=== PATIENT | female | born 2005 | race Caucasian/White ===

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

== ENCOUNTER 2024-06-09 11:10 | Emergency (ER) | payer BC, SELFPAY ==
--- NOTE | 2024-06-09 11:15 | ED.FEMALEGU ---
HPI - Female Genitourinary General Chief complaint: Urogenital-Female Stated complaint: Bladder pain Time Seen by Provider: 06/09/24 11:15 Source: patient Mode of arrival: ambulatory Limitations: no limitations History of Present Illness HPI Narrative: Gabrielle is a 18-year-old female patient presenting to the clinic today with complaints of possible UTI. She reports she has had burning, frequency, and urgency with urination for the past 5 days. Last menstrual period was last week. Last bowel movement was 2-3 days ago. Denies any fever or chills but does have some slight right-sided lower back pain as well as had 1 episode of nausea/vomiting. Does report some bladder discomfort. Denies any concern for or STIs. Related Data Home Medications Medication Instructions Recorded Confirmed atomoxetine 25 mg capsule 25 mg PO DIRECTED 06/09/24 06/09/24 fluoxetine 10 mg capsule 10 mg DIRECTED 06/09/24 06/09/24 Allergies Allergy/AdvReac Type Severity Reaction Status Date / Time No Known Allergies Verified 09/10/10 09:34 Review of Systems Review of Systems: Pertinent positives per HPI. Patient denies any fever, chills, rash, headache, visual changes, dizziness, cough, runny nose, sore throat, shortness of breath, chest pain, palpitations, nausea, vomiting, diarrhea, constipation, abdominal pain PMFSH Comments At the time of my signature, I reviewed and agree with the nursing past medical, surgical, social, and family history. There is no relevant family history pertinent to the patient complaint. Exam Narrative: General: Well-developed, well nourished, in no apparent distress. Head: Normocephalic, atraumatic. Cardio: Regular rate and rhythm, s1 and s2 normal, no murmur appreciated. Resp: Clear to auscultation bilaterally, no rhonchi, rales, wheezing or rubs. Abdomen: Soft, pliable, bowel sounds present in all quadrants, tender to palpation over the suprapubic bladder, no organomegly mild right CVAT tenderness. Course Course Emergency Course: Portions of this record may have been created with voice recognition software. Level of Care: Express Care Visit Vital Signs Vital signs: Vital Signs Temperature 36.7 C 06/09/24 11:26 Pulse Rate 68 06/09/24 11:26 Respiratory Rate 18 06/09/24 11:26 Blood Pressure 122/83 06/09/24 11:26 Pulse Oximetry 100 06/09/24 11:26 Oxygen Delivery Room Air 06/09/24 11:26 Temperature 36.7 C 06/09/24 11:26 Pulse Rate 68 06/09/24 11:26 Respiratory Rate 18 06/09/24 11:26 Blood Pressure 122/83 06/09/24 11:26 Pulse Oximetry 100 06/09/24 11:26 Oxygen Delivery Room Air 06/09/24 11:26 Vital signs reviewed MDM - Female Genitourinary MDM Narrative Medical decision making narrative: At the time of visit patient is resting comfortably on the exam table. Patient appears to be nontoxic. Labs: Urinalysis positive for leukocytes, blood, protein, and nitrates. Plan: I suspect patient has acute urinary tract infection. Prescription for Bactrim and Pyridium was sent to the pharmacy. Supportive measures were discussed with the patient and they voiced understanding discharge instructions and agrees to treatment plan. Return precautions reviewed Differential Diagnosis Differential diagnosis: Likely urinary tract infection, bacterial vaginosis, trichomoniasis, cervicitis, vaginitis, cystitis and other (STI) Lab Data Labs: Lab Results 06/09/24 Range/Units 11:34 POC Urine Color Yellow POC Urine Clarity Cloudy POC Urine pH 7.0 POC Ur Specif Gage 1.025 POC Urine Protein 2+ POC Ur Glucose (UA) Negative POC Urine Ketones Negative POC Urine Blood 1+ POC Urine Nitrite Positive POC Urine Bilirubin Negative POC Urine Urobilinogen 1.0 POC U Leukocyte Esteras 3+ Discharge Plan Discharge Clinical Impression: Urinary tract infection Qualifiers: Urinary tract infection type: acut
[2024-06-09 11:26] VITALS: BP 122/83; PULSE 68; RESP 18; TEMP 36.7; O2SAT 100
[2024-06-09 11:36] LABS: EDUAAPPEAR Cloudy; EDUABILI Negative; EDUABLOOD 1+; EDUACOLOR1 Yellow; EDUAGLUCOSE Negative; EDUAKETONE Negative; EDUALEUKO 3+; EDUANITRATE Positive; EDUAPROTEIN 2+; EDUASPGRAVITY 1.025
== END 2024-06-09 11:44 | disposition home or self-care (01) ==
PROVIDERS: Emergency Provider Nurse Practitioner Family; PCP Internal Medicine
DX: N30.01 Acute cystitis with hematuria (principal); B96.20 Unspecified Escherichia coli [E. coli] as the cause of diseases classified elsewhere; F41.9 Anxiety disorder, unspecified; F32.A Depression, unspecified
CPT/HCPCS: 81003; 87077; 87086; 87088; 87186; 99213; G0463

== ENCOUNTER 2025-05-11 17:18 | Emergency (ER) | payer BC, SELFPAY ==
--- OUTSIDE RECORDS SUMMARY | 2025-05-11 17:19 | XMS_ITS | Encounter Summary ---
Author Organization [facility] Address [address] [place] [address] Care Team Providers Care Booking Agent Name Role Phone Sergey Nathan MD Primary Care Provider [phone] Encounter Details Date Type Department Care Team (Latest Contact Info) Description 07/01/2024 Bloson Message Enc [facility] Medical Group Multispecialty Care - [place] [address] [address] [address] [place] [address] Sergey Nathan MD [address] [place] [address] [address] [place] [address] Follow-up appointment Social History Tobacco Use Types Packs/Day Years Used Date Smoking Tobacco: Some Days Cigarettes Smokeless Tobacco: Never Comments:Counseled by Dr. Clemencia jacome. Alcohol Use Standard Drinks/Week Comments Not Currently 0 (1 standard drink = 0.6 oz pure alcohol) approx once monthly drinks milton PHQ-2 Answer Date Recorded Patient Health Questionnaire-2 Score 4 04/22/2024 Comments No Sex and Gender Information Value Date Recorded Sex Assigned at Female 01/04/2025 4:05 PM CDT Legal Sex Female 6:55 PM CDT Gender Identity Female 01/04/2025 4:05 PM CDT Sexual Orientation Straight 01/04/2025 4: 05 PM CDT documented as of this encounter Plan of Treatment Not on file documented as of this encounter Visit Diagnoses Not on filedocumented in this encounter Additional Health Concerns Assessment Noted Time PHQ-9 Depression Total Score: 20 024 2:10 PM CDT documented as of this encounter Care Teams Booking Agent Relationship Specialty Start Date End Date Sergey Nathan MD [address] [address] PCP - General INTERNAL MEDICINE 09/23/23 documented as of this encounter
--- OUTSIDE RECORDS SUMMARY | 2025-05-11 17:19 | XMS_ITS | Encounter Summary ---
Author Organization [facility] Address [address] [place] [address] Care Team Providers Care Lcac Operator Name Role Phone Sergey Nathan MD Primary Care Provider [phone] Encounter Details Date Type Department Care Team (Late st Contact Info) Description 04/12/2024 PhotoTLCt Message Enc [facility] Medical Group Multispecialty Care - [address] [address] [address] [place] [address] Sergey Nathan MD [address] [place] [address] [address] [place], [place] [id number] rash Social History Tobacco Use Types Packs/Day Years Used Date Smoking Tobacco: Some Days Cigarettes Smokeless Tobacco: Never Comments:Counseled by Dr. Clemencia jacome. Alcohol Use Standard Drinks/Week Comments Not Currently 0 (1 standard drink = 0.6 oz pure alcohol) approx once monthly drinks milton PHQ-2 Answer Date Recorded Patient Health Questionnaire-2 Score 3 03/26/2024 Comments No Sex and Gender Information Value [...] Assessment Noted Time PHQ-9 Depression Total Score: 11 024 10:02 AM CDT documented as of this encounter Care Teams Lcac Operator Relationship Specialty Start Date End Date Sergey Nathan MD [address] [address] PCP - General INTERNAL MEDICINE 09/23/23 documented as of this encounter
--- OUTSIDE RECORDS SUMMARY | 2025-05-11 17:19 | XMS_ITS | Encounter Summary ---
Author Organization [facility] Address [address] [place] [address] Care Team Providers Care Rn Hemodialysis Name Role Phone Sergey Nathan MD Primary Care Provider [phone] Encounter Details Date Type Department Care Team (Latest Contact Info) Description 06/24/2024 Poq Studio Message Enc [facility] Medical Group Multispecialty Care - [place] [address] [address] [address] [place] [address] Sergey Nathan MD [address] [place] [address] [address] [place], [place] [id number] reschedule appointment 06/24/2024 Social History Tobacco Use Types Packs/Day Years [...] documented as of this encounter Care Teams Rn Hemodialysis Relationship Specialty Start Date End Date Sergye Nathan MD [address] [address] PCP - General INTERNAL MEDICINE 09/23/23 documented as of this encounter
--- OUTSIDE RECORDS SUMMARY | 2025-05-11 17:19 | XMS_ITS | Encounter Summary ---
Author Organization [facility] Address [address] [place] [address] Care Team Providers Care Instructional Design Consultant Name Role Phone Sergey Nathan MD Primary Care Provider [phone] Encounter Details Date Type Department Care Team (Late st Contact Info) Description 10/08/2023 Combatant Gentlemen Message [facility] Medical [facility] Family Medicine [facility] [address] [place] [id number] [employer], [facility] Provider test result Social History Tobacco Use Types Packs/Day Years Used Date Smoking Tobacco: Some Days Cigarettes Smokeless Tobacco: Never Alcohol Use Standard Drinks/Week Comments Not Currently 0 (1 standard drink = 0.6 oz pure alcohol) approx once monthly drinks milton PHQ-2 Answer Date Recorded Patient Health Questionnaire-2 Score 4 09/23/2023 Comments No Sex and Gender Information Value Date Recorded Sex Assigned at Female 01/04/2025 4:05 PM CDT Legal Sex Female 6:55 PM CDT Gender Identity Female 01/04/2025 4:05 PM CDT Sexual Orientation Straight 01/04/2025 4: 05 PM CDT documented as of this encounter Progress Notes * Angelica Whitt MA - 10/19/2023 4:38 PM CST Pt requesting rx on Loestrin TH CENTER ASSISTANT documented in this encounter Plan of Treatment Not on file documented as of this encounter Visit Diagnoses Diagnosis control counseling General counseling for initiation of other contraceptive measures documented in this encounter Additional Health Concerns Assessment Noted Time PHQ-9 Depression Total Score: 16 023 3:29 PM HEALTH CENTER ASSISTANT documented as of this encounter Care Teams Instructional Design Consultant Relationship Specialty Start Date End Date Sergey Nathan MD [address] [address] PCP - General INTERNAL MEDICINE 09/23/23 documented as of this encounter
--- OUTSIDE RECORDS SUMMARY | 2025-05-11 17:19 | XMS_ITS | Encounter Summary ---
Author Organization [facility] Address [address] [place] [address] Care Team Providers Care Admissions Officer Name Role Phone Sergey Nathan MD Primary Care Provider [phone] Encounter Details Date Type Department Care Team (Late st Contact Info) Description 01/06/2025 Appointuit Message [employer] [facility] Medical Group Multispecialty Care - [address] [place] [address] [employer], [facility] Provider records Social History Tobacco Use Types Packs/Day Years Used Date Smoking Tobacco: Some Days Cigarettes Smokeless Tobacco: Never Comments:Counseled by Dr. Clemencia jacome. Alcohol Use Standard Drinks/Week Comments Not Currently 0 (1 standard drink = 0.6 oz pure alcohol) approx once monthly drinks milton PHQ-2 Answer Date Recorded Patient Health Questionnaire-2 Score 3 01/04/2025 Comments No Sex and Gender Information Value [...] Assessment Noted Time PHQ-9 Depression Total Score: 13 025 5:11 PM CDT documented as of this encounter Care Teams Admissions Officer Relationship Specialty Start Date End Date Sergey Nathan MD [address] [facility] [address] [place] [address] PCP - General INTERNAL MEDICINE 09/23/23 documented as of this encounter
--- OUTSIDE RECORDS SUMMARY | 2025-05-11 17:19 | XMS_ITS | Clinical Summary ---
Author Organization [facility] Address [address] [place] [address] Care Team Providers Care Rough And Truing Machine Operator Name Role Phone Malachi Juarez MD Primary Care Provider [phone] Source Comments [facility],non-owned Affiliates and Associated Physician Practices is amultiple site organization consisting of ambulatory clinics and hospital sitesin [place], [place], [place] and [place]. This disclosure is being madepursuant to the Care Everywhere program and may not contain all information available regarding this patient. Last updated 18.[facility]a Allergies No known active allergies Medications * Be aware that medications may not be up to date on this document. Alwaysverify current medications with the patient. No known medications Social History Tobacco Use Types Packs/Day Years Used Date Smoking Tobacco: Never Assessed Comments Unknown Sex and Gender Information Value Date Recorded Sex Assigned at Not on file Legal Sex Female 5:42 AM INDUSTRIAL ECOLOGIST Gender Identity Not on file Sexual Orientation Not on file Last Filed Vital Signs Vital Sign Reading Time Taken Comments Blood Pressure 112/68 03/25/2018 8:15 AM CDT Pulse 80 03/25/2018 8:15 AM CDT Temperature - - Respiratory Rate 12 03/25/2018 8:15 AM CDT Oxygen Saturation - - Inhaled Oxygen Concentration - - Weight 50.3 kg (110 lb 14.3 oz) 03/25/2018 8:15 AM CDT Height 157.8 cm (5' 2.13) 03/25/2018 8:15 AM CD T Body Mass Index 20.2 03/25/2018 8:15 AM CDT Plan of Treatment Health Maintenance Due Date Last Done Comments HIV SCREENING 2018 HPV VACCINE (1 - 3-dose series) 2018 CHLAMYDIA/GONORRHEA SCREENING 2019 MENINGOCOCCAL (Group B) VACC INE SHARED DECISION-MAKING (1 of 2 - Standard) 2019 HEPATITIS C SCREENING 07/27/2021 DTAP/TDAP/TD VACCINES (1 - Tdap) 2022 HEPATITIS B VACCINE (1 of 3 - 19+ 3-dose series) 2022 COVID-19 VACCINE (1 - 2023-2 5 season) 2024 DEPRESSION SCREENING 10/12/2024 INFLUENZA VACCINE (#1) 2025 ZOSTER VACCINE (1 of 2) 2053 HIB VACCINE Aged Out No longer eligi ble based on patient's age to complete this topic MENINGOCOCCAL GROUPS A/C/Y/W VACCINE Aged Out No longer eligible b ased on patient's age to complete this topic PNEUMOCOCCAL VACCINE Aged Out No long er eligible based on patient's age to complete this topic Insurance [facility] Care Teams Rough And Truing Machine Operator Relationship Specialty Start Date End Date Malachi Juarez MD [address] [place] [address] PCP - General Pediatrics 04/20/12
--- OUTSIDE RECORDS SUMMARY | 2025-05-11 17:19 | XMS_ITS | Clinical Summary ---
Author Organization [facility] Address [address] [place] [address] Care Team Providers Care Bulk Mail Technician Name Role Phone Sergey Nathan MD Primary Care Provider [phone] Allergies No known active allergies Medications albuterol sulfate HFA 108 (90 Base) MCG/ACT inhaler 10/14/19 22 Active BLISOVI FE 10/31 1-20 MG-MCG tablet Take 1 tablet by mouth daily. 01/12/20 24 Active clotrimazole (LOTRIMIN) 1 % creamIndications:R albert Apply lightly twice daily to the rash until resolved 40 g 03/26/20 24 Active Additional Information Patient not taking.Reported on 01/04/2025 FLUoxetine (PROZAC) 10 MG capsuleIndications :SKY (generalized anxiety disorder) Take 1 capsule (10 mg total) by mouth daily. 90 capsule 04/22/20 24 Active Additional Information Patient not taking.Reported on 01/04/2025 valACYclovir (VALTREX) 1 g tabletIndications: Herpes simplex vulvovaginitis Take 1 tablet (1,000 mg total) by mouth 2 (two) times daily. 21 tablet 07/14/20 24 Active atomoxetine (STRATTERA) 25 MG capsuleIndications :Attention deficit hyperactivity disorder (ADHD), predominantly inattentive type TAKE 1 CAPSULE(25 MG) BY MOUTH DAILY 60 capsule 09/09/20 24 Active Additional Information Patient not taking.Reported on 01/04/2025 fluconazole (DIFLUCAN) 150 MG tabletIndications: Acute vaginitis Take 1 tablet (150 mg total) by mouth daily. 5 tablet 01/05/20 25 Active Active Problems Problem Noted Date Diagnosed Date Genital herpes 11/04/2022 Immunizations Immunization Administration Dates Next Due Dtap 01/31/2004, 4,2003,10/03 Dtap (Generic) 05/11/2009,11/05/2004 Fluzone 6 Months+ Quad (0.5 mL Prefilled Syringe) 10/01/2016 HPV GARDASIL 9-VALENT 10/01/2015,06/01/2015 HPV4 (Gardasil) 09/21/2014 Hepatitis A (Generic) 05/11/2009 Hepatitis A (Havrix [address]) 09/21/2014 Hepatitis A Vaccine 09/21/2014 Hepatitis B/Hib 3 Dose Schedule 08/05/20 04,2003,2003,10/03 Influenza (Generic) 06/29/2014, 2,07/19/2010,08/27,08/12/2005,11/05/2004,08/05/2004 Influenza Adult (Generic) 08/11/2020,10/01/2016 MMR 05/11/2009,08/05/2004 Menactra 09/21/2014 Meningococcal (Menactra) 07/26/2021 Pneumococcal (Prevnar 7) 08/05/2004,04/12,2003,11/05,2003 Polio Ipv (Generic) 05/11/2009, 4,2003,10/03 Tdap (Adacel) 09/21/2014 Varicella Vaccine 05/11/2009,11/05/2004,11/05/19 04 Family History Medical History Relation Comments No Known Problems Father Diabetes Maternal Grandfather No Known Problems Mother Diabetes Paternal Grandmother Relation Status Comments Father Alive Maternal Grandfather Alive Maternal Grandmother Alive Mother Alive Paternal Grandfather Paternal Grandmother Alive Social History Tobacco Use Types Packs/Day Years Used Date Smoking Tobacco: Some Days Cigarettes Smokeless Tobacco: Never Tobacco Cessation:Ready to Q uit: No; Counseling Given: Yes Comments:Counseled by Dr. Nathan. Alcohol Use Standard Drinks/Week Comments Not Currently [...] Orientation Straight 01/04/2025 4: 05 PM CDT Last Filed Vital Signs Vital Sign Reading Time Taken Comments Blood Pressure 132/79 01/04/2025 4:05 PM CDT Pulse 94 01/04/2025 4:05 PM CDT Temperature 36.8 C (98.2 F) 01/04/2025 4:05 PM CDT Respiratory Rate 18 01/04/2025 4:05 PM CDT Oxygen Saturation 100% 01/04/2025 4:05 PM CDT Inhaled Oxygen Concentration - - Weight 46.7 kg (103 lb) 01/04/2025 4:05 PM CDT Height 157.5 cm (5' 2) 01/04/2025 4:05 PM CDT Body Mass Index 18.84 01/04/2025 4:05 PM CDT Plan of Treatment Health Maintenance Due Date Last Done Comments Cervical Cancer Screening Pap Smear (Age 21 to 29) Every 3 Years 2003 Cervical Cancer Screening 2003 Meningococcal B Vaccine (1 of 2 - Standard) 2019 Hepatitis C 2021 Pneumococcal Vaccine: Pediatrics (0 to 5 Years) and At-Risk Patients (6 to 49 Years) (1 of 2 - PCV) 2022 08/05/2004, 05/02/2004, 2003, Additional history exists Annual Physical 11/03/2023 11/03/2022 COVID-19 Vaccine ( - season) 2024 DTaP, Tdap and Td Vaccines (7 - Td or Tdap) 09/21/2024 09/21/2014, 05/11/2009, 11/05/2004, Additional history exists Hepatitis B Vaccines Completed 08/05/2004, 2003, 2003, Additional history exists HPV Vaccines Completed 10/01/2015, 05/13, 09/21/2014 Meningococcal Vaccine Completed 07/26/2021, 014 PHQ-2 (Physician [place]) Completed 01/04/2025 RSV Immunizations Under 20 Months Aged Out No longer eligible based on patient's age to complete this topic Insurance [facility] Care Teams Bulk Mail Technician Relationship Specialty Start Date End Date Sergey Nathan MD [address] [address] PCP - General INTERNAL MEDICINE 09/23/23
--- OUTSIDE RECORDS SUMMARY | 2025-05-11 17:19 | XMS_ITS | Encounter Summary ---
Author Organization [facility] Address [address] [place] [address] Care Team Providers Care Tso Name Role Phone Sergey Nathan MD Primary Care Provider [phone] Encounter Details Date Type Department Care Team (Latest Contact Info) Description 07/14/2024 Innovega Message Enc [facility] Medical Group Multispecialty Care - [place] [address] [address] [address] [place] [address] Sergey Nathan MD [address] [place] [address] [address] [place], [place] [id number] Possible outbreak Social History Tobacco Use Types Packs/Day Years [...] documented as of this encounter Care Teams Tso Relationship Specialty Start Date End Date Sergey Nathan MD [address] [address] PCP - General INTERNAL MEDICINE 09/23/23 documented as of this encounter
[2025-05-11 17:25] VITALS: BP 127/87; PULSE 108; RESP 18; TEMP 36.9; O2SAT 100
[2025-05-11 17:36] LABS: EDUAAPPEAR Cloudy; EDUABILI Negative (Negative); EDUABLOOD 1+ (Negative); EDUACOLOR1 Yellow; EDUAGLUCOSE Negative (Negative); EDUAKETONE Negative (Negative); EDUALEUKO 1+ (Negative); EDUANITRATE Negative (Negative); EDUAPH 5.5; EDUAPROTEIN 1+ (Negative); EDUASPGRAVITY 1.025; EDUAUROBILI 0.2
--- NOTE | 2025-05-11 17:55 | ED.FEMALEGU ---
HPI - Female Genitourinary General Chief complaint: Urogenital-Female Stated complaint: UTI Time Seen by Provider: 05/11/25 17:30 Source: patient and RN notes reviewed Mode of arrival: ambulatory Limitations: no limitations History of Present Illness HPI Narrative: 19-year-old female presents [facility] complaining of urinary symptoms for 7 days. Patient reports having dysuria, increased frequency, suprapubic pain, cloudy urine, low back pain. Patient denies any fevers, body aches, chills, nausea, vomiting, diarrhea. Patient also reports thick white vaginal discharge for last 4 days. Patient denies any concerns for STIs of pelvic pain, vaginal bleeding, vaginal irritation, vaginal itchiness, or any foul smells. Patient does report she has had recent unprotected sex. Patient has not taken anything [id number] for symptoms. Patient denies any significant past medical history. Related Data Allergies Allergy/AdvReac Type Severity Reaction Status Date / Time No Known Allergies Allergy Verified 05/11/25 17:37 Review of Systems Review of Systems: CONSTITUTIONAL: Denies fever, chills, body aches, or sweats. EYES: Denies visual changes, redness, or discharge. ENT: Denies rhinorrhea, congestion, sore throat, or otalgia. CARDIOVASCULAR: Denies chest pain, palpitations, or edema. RESPIRATORY: Denies cough or dyspnea. GASTROINTESTINAL: Positive for suprapubic abdominal pain. Negative for nausea, vomiting, or diarrhea. GENITOURINARY: Positive for dysuria, increased frequency, vaginal discharge. Negative for hematuria, vaginal bleeding, vaginal irritation, vaginal itching, pelvic pain, painful intercourse. SKIN: Denies rash or itching. MUSCULOSKELETAL: Denies back pain, joint pain, or myalgia. NEUROLOGIC: Denies headache, numbness, or weakness. PSYCHIATRIC: Denies anxiety or depression. All other systems reviewed are negative, except as documented in HPI. PMFSH Comments At the time of my signature, I reviewed and agree with the nursing past medical, surgical, social, and family history. There is no relevant family history pertinent to the patient complaint. Exam Narrative: GENERAL: This is a well-nourished, well-developed adult, in no apparent distress. They are non ill-appearing, nontoxic appearing. HEAD: normocephalic, atraumatic. EYES: Sclera clear/white. Vision is grossly intact. Conjunctiva normal bilaterally. Extraocular movements intact. EARS: External ears normal,Hearing grossly intact. NOSE: External nose normal THROAT: Mucous membranes moist NECK: Normal range of motion CARDIOVASCULAR: Regular rate and rhythm. Normal S1-S2. No clicks, gallops, rubs, murmurs. RESPIRATORY: Respiratory rate normal, respiratory effort nonlabored, no respiratory distress. Lung sounds clear to auscultation throughout. Lung sounds equal bilaterally. No adventitious lung sounds. GASTROINTESTINAL: Abdomen soft, flat, non-tender, nondistended. Bowel sounds are active. No hepato-splenomegaly, or palpable masses. No guarding. No rebound tenderness. GENITOURINARY: Patient declined pelvic and speculum exam. SKIN: warm, Dry, intact with no suspicious lesions or rash, good texture and turgor. NEURO: awake, alert, and oriented to person, place and time. There were no obvious focal neurologic abnormalities. EXTREMITIES: No joint tenderness, effusion, or edema noted. BACK: Nontender without deformity. No CVA tenderness. Course Course Emergency Course: Portions of this record may have been created with voice recognition software Level of Care: Express Care Visit Vital Signs Vital signs: Vital Signs Temperature 98.5 F 05/11/25 17:25 Pulse Rate 108 H 05/11/25 17:25 Respiratory Rate 18 05/11/25 17:25 Blood Pressure 127/87 05/11/25 17:25 Pulse Oximetry 100 05/11/25 17:25 Oxygen Delivery Room Air 05/11/25 17:25 Temperature 98.5 F 05/11/25 17:25 Pulse Rate 108 H 05/11/25 17:25 Respiratory Rate 18 05/11/25 17:25 Blood Pressure 127/87 05/11/25 17:25 Pulse Oximetry 100 05/11/25 17:25 Oxygen Delivery Room Air 05/11/25 17:25 MDM - Female Genitourinary MDM Narrative Medical decision making narrative: Urine dipstick shows evidence of urinary tract infection. Patient's symptoms are clinically consistent with UTI. Urine culture pending. Will treat her with Bactrim. Offered patient pelvic exam and speculum exam for further evaluation and patient declined. Patient says she has a history of bacterial vaginosis. Offered patient self swabs and she declined. Patient agreeable to have her urine tested for STIs. Patient denies any concerns for STIs but does report a unprotected intercourse recently. Chlamydia, gonorrhea, Trichomonas are pending. Patient says she will follow-up with her OBGYN about her vaginal discharge especially if symptoms persist or get worse. Discussed physical exam findings. Advised supportive measures and signs/symptoms to go to the ER. Pt is appropriate for outpt treatment and f/u. Differential Diagnosis Differential diagnosis: Likely urinary tract infection, bacterial vaginosis, trichomoniasis, vaginitis, cystitis and other (Pyelonephritis) Lab Data Attestation: I reviewed the patient's lab results. Labs: Lab Results 05/11/25 Range/Units 17:34 POC Urine Color Yellow POC Urine Clarity Cloudy POC Urine pH 5.5 POC Ur Specif [place] 1.025 POC Urine Protein 1+ (Negative) POC Ur Glucose (UA) Negative (Negative) POC Urine Ketones Negative (Negative) POC Urine Blood 1+ (Negative) POC Urine Nitrite Negative (Negative) POC Urine Bilirubin Negative (Negative) POC Urine Urobilinogen 0.2 POC U Leukocyte Esteras 1+ (Negative) Discharge Plan Discharge Clinical Impression: Urinary tract infection Qualifiers: Urinary tract infection type: site unspecified Hematuria presence: with hematuria Qualified Code(s): N39.0 - Urinary tract infection, site not specified Patient Disposition: Home Condition: Stable Instructions: Antibiotic Form, Urinary Tract Infection in Women (ED) Additional Instructions: You will be notified of the results of your chlamydia, gonorrhea, and Trichomonas and will be prescribed appropriate treatment if anything is positive. Urine shows evidence of urinary tract infection. Take the antibiotic as prescribed The urine will be sent of for a culture to identify what type of bacteria is causing your infection. If the culture shows that the antibiotic will not get rid of your infection, you will be notified and a new antibiotic will be called in for you. Increase water intake you will need to follow up with your PCP 3-5 days. Please follow-up with your OBGYN about her vaginal discharge especially symptoms are persisting. Go to the ER for any worsening symptoms, abdominal pain, fevers, nausea, vomiting, or any other concerns Patient Language: Ethiopian Prescriptions: New sulfamethoxazole-trimethoprim [Bactrim DS] 800-160 mg tablet 1 tablet PO Q12H 5 Days Qty: 10 0RF Follow-up/Referrals: Venita,MD Sergey [Primary Care Provider] - Time of Disposition: 17:54
[2025-05-11 20:13] LABS: Trichomonas Vag PCR NOT DETECTED (NOT DETECTE)
== END 2025-05-11 17:59 | disposition home or self-care (01) ==
PROVIDERS: PCP Internal Medicine
DX: N39.0 Urinary tract infection, site not specified (principal); Z11.3 Encounter for screening for infections with a predominantly sexual mode of transmission
CPT/HCPCS: 81003; 87491; 87591; 87661; 99213; G0463